=== PATIENT | male | born 1995 | race Caucasian/White ===

== ENCOUNTER 2023-12-11 11:15 | Emergency (ER) | payer MEDICAID ==
[~2023-12-11] VITALS: Ht 188 cm; Wt 72.6 kg
[2023-12-11 11:23] VITALS: TEMP 98.2
[2023-12-11] MEDS ORDERED: IV NS 0.9% 1,000 ML BAG IV ONE (11:30)
[2023-12-11] MEDS ORDERED: ONDANSETRON HCL/PF 4 MG/2 ML VIAL IVP ONE (11:30)
[2023-12-11] MEDS ORDERED: ONDANSETRON HCL/PF 4 MG/2 ML VIAL ONE (11:35)
[2023-12-11 11:54] LABS: BASOPHILS % (AUTO) 0.5 % (0.0-2.0); EOSINOPHILS # (AUTO) 0.2 K/uL (0.0-0.7); EOSINOPHILS % (AUTO) 2.5 % (0.0-6.0); HEMATOCRIT 43 % (39-51); HEMOGLOBIN 14.7 g/dL (13.5-17.5); LYMPHOCYTES # (AUTO) 2.3 K/uL (0.8-4.8); MEAN CORPUSCULAR HEMOGLOBIN 31 PG (26.0-33.0); MEAN CORPUSCULAR HGB CONC 34 g/dl (31.0-36.0); MEAN CORPUSCULAR VOLUME 91 fL (80-96); MONOCYTES # (AUTO) 0.4 K/uL (0.1-1.30); MONOCYTES % (AUTO) 6.4 % (2.0-12.0); NEUTROPHILS % (AUTO) 57.6 % (43.0-81.0); PLATELET COUNT (AUTO) 265 K/uL (150-450); RED BLOOD CELL COUNT(AUTO) 4.75 MIL/uL (4.5-6.0); RED CELL DISTRIBUTION WIDTH 12.8 % (11.5-15.0); WHITE BLOOD COUNT (AUTO) 6.9 K/uL (4.3-11.0)
[2023-12-11 12:07] LABS: ALBUMIN 4.1 g/dL (3.4-5.0); BILIRUBIN,DIRECT 0.2 mg/dL (0.0-0.2); BILIRUBIN,TOTAL 0.8 mg/dL (0.2-1.0); CALCIUM, SERUM 9.5 mg/dL (8.5-10.1); CREATININE 1.1 mg/dL (0.6-1.3); TOTAL PROTEIN, SERUM 7.6 g/dL (6.4-8.2)
[2023-12-11 12:20] LABS: POTASSIUM 4.1 mmol/L (3.5-5.1)
[2023-12-11] MEDS ORDERED: PRED20TA PO (14:15)
[2023-12-11] MEDS ORDERED: AMOX-430 PO (14:15)
[2023-12-11] MEDS ORDERED: IBUP-1955 PO (14:15)
[2023-12-11 14:24] VITALS: BP 109/70; O2SAT 98
== END 2023-12-11 14:25 | disposition home or self-care (01) ==
LOC: ER 11:26
DX: K52.9 Noninfective gastroenteritis and colitis, unspecified (principal); R10.31 Right lower quadrant pain
CPT/HCPCS: 99285; 74176; 96374; 76705; 96361; 85025; 80048; 83690; 80076; 36415; J2405; J7030

== ENCOUNTER 2024-09-01 06:19 | Emergency (ER) | payer OTHER ==
[~2024-09-01] VITALS: Ht 188 cm; Wt 63.5 kg
[~2024-09-01 06:19] MED LIST: AMOX-430 PO; IBUP-1955 PO; PRED20TA PO
[2024-09-01] MEDS ORDERED: FAMOTIDINE (20 MG) 20 MG TABLET ONE (06:51)
[2024-09-01] MEDS: FAMOTIDINE (20 MG) 20 MG TABLET PO ONE (06:54)
[2024-09-01] MEDS ORDERED: PANT40TA49 PO (07:32)
[2024-09-01 08:17] VITALS: BP 114/75; TEMP 98.5; O2SAT 100
== END 2024-09-01 08:17 | disposition home or self-care (01) ==
LOC: ER 06:19
DX: R07.9 Chest pain, unspecified (principal); R10.13 Epigastric pain; Z90.49 Acquired absence of other specified parts of digestive tract
CPT/HCPCS: 71045-TC